=== PATIENT | female | born 1960 | race Caucasian/White ===

== ENCOUNTER 2018-03-02 10:15 | Observation (INO) ==
[2018-06-16 12:23] VITALS: BP_SYST 178; PULSE 54; RESP 18; O2SAT 97
== END 2018-03-04 12:58 | disposition home or self-care (01) ==
LOC: N05 10:15
PROVIDERS: ADMIT Family Medicine; ATTEND Family Medicine
DX: E11.9 Type 2 diabetes mellitus without complications; G51.0 Bell's palsy; I48.91 Unspecified atrial fibrillation; E03.9 Hypothyroidism, unspecified; J44.9 Chronic obstructive pulmonary disease, unspecified